=== PATIENT | female | born 1945 | race Caucasian/White ===

== ENCOUNTER 2018-01-14 13:19 | Day surgery (SDC) | payer MEDICARE, OTHER ==
[~2018-01-14] VITALS: Ht 165.1 cm; Wt 62.7 kg
[2018-01-14] MEDS ORDERED: MIRT15TA PO (13:35)
[2018-01-14] MEDS ORDERED: LEVO50TA8 PO (13:36)
[2018-01-14] MEDS ORDERED: CARB-87 PO (13:36)
[2018-01-14] MEDS ORDERED: DOCU-28 PO (13:37)
[2018-01-14] MEDS ORDERED: CYAN-19 PO (13:37)
[2018-01-14] MEDS ORDERED: MIDAZolam 5mg/5ml vial ONE (13:38)
[2018-01-14] MEDS ORDERED: fentaNYL/PF 50MCG/1 ML 2ML syringe ONE (13:38)
[2018-01-14 13:45] VITALS: BP 151/81
[2018-01-14 14:52] VITALS: BP 123/68
[2018-01-14 15:02] VITALS: BP 119/67
[2018-01-14 15:12] VITALS: BP 123/70
[2018-01-14 15:22] VITALS: BP 118/68
== END 2018-01-14 15:30 | disposition home or self-care (01) ==
LOC: GI LAB 13:19
PROVIDERS: ATTEND Internal Medicine Gastroenterology
DX: Z09 Encounter for follow-up examination after completed treatment for conditions other than malignant neoplasm (principal); D12.4 Benign neoplasm of descending colon; K57.30 Diverticulosis of large intestine without perforation or abscess without bleeding; I25.6 Silent myocardial ischemia; G20 Parkinson's disease; Z86.010 Personal history of colon polyps; Z86.74 Personal history of sudden cardiac arrest; Z88.0 Allergy status to penicillin; Z88.2 Allergy status to sulfonamides; Z79.899 Other long term (current) drug therapy; Z98.890 Other specified postprocedural states; Z88.8 Allergy status to other drugs, medicaments and biological substances
CPT/HCPCS: 45385; 99153; G0500; J2250; J3010; J7030; 88305; A4620